=== PATIENT | male | born 1970 | race Caucasian/White ===

== ENCOUNTER 2018-08-29 | Inpatient (IN) | payer MEDICAID ==
[~2018-08-29] VITALS: Ht 167.6 cm; Wt 83.2 kg
[2018-08-29 00:05] VITALS: Ht 167.6 cm; Wt 83.2 kg
--- NOTE | 2018-08-29 00:14 | NUR ---
REC'D A 48/M IN RM 4 WITH C/O RUQ PAIN X 2 DAYS. PT DESCRIBES THE PAIN INTERMITTENT, PRESSURE-LIKE AND RADIATES TO THE BACK. PT DENIES N/V/D/C, FEVER OR DYSURIA. PT AAOX4, CLEAR SPEECH, NIGERIAN SPEAKING, RESP E/U, TRACTION NOTED TO RIGHT LOWER EXTREMITY, IN NO ACUTE DISTRESS, SPOUSE AT BEDSIDE.
--- NOTE | 2018-08-29 00:14 | NUR ---
DR LOZADA AT BEDSIDE FOR MSE.
--- NOTE | 2018-08-29 00:29 | NUR ---
PROVIDED URINAL AT BEDSIDE FOR URINE.
[2018-08-29 00:45] LABS: BASOPHIL % 0 % (0-2); PLATELET COUNT 194 x10^3mcL (130-400); RED CELL DISTRIBUTION WIDTH 13.4 % (11.5-14.5)
--- NOTE | 2018-08-29 00:48 | NUR ---
PT TAKEN TO ULTRASOUND VIA WC.
[2018-08-29 00:55] LABS: CALCIUM 9.3 mg/dL (8.5-10.1); CARBON DIOXIDE 22.7 mmol/L (21-32); CHLORIDE SERUM 96 mmol/L (98-107); CREATININE SERUM 0.7 mg/dL (0.7-1.3); GFR1 > 60 mL/min; GLUCOSE SERUM 211 mg/dL (74-106); POTASSIUM SERUM 4.1 mmol/L (3.5-5.1); SODIUM SERUM 132 mmol/L (136-145)
[2018-08-29 01:00] LABS: ALBUMIN 3.7 g/dL (3.4-5.0); ALKALINE PHOSPHATASE 107 U/L (46-116); ALT/SGPT 68 U/L (16-63); AST/SGOT 30 U/L (15-37); BILIRUBIN TOTAL 3.93 mg/dL (0.20-1.00); LIPASE 39 IU/L (73-393); TOTAL PROTEIN, SERUM 7.8 g/dL (6.4-8.2)
--- NOTE | 2018-08-29 01:09 | NUR ---
PT RETURNED TO RM 4 FROM ULTRASOUND WITHOUT INCIDENT.
--- NOTE | 2018-08-29 01:14 | NUR ---
REPORT GIVEN TO MARLEE WIGGISN TO ASSUME CARE OF THE PT.
--- NOTE | 2018-08-29 01:15 | NUR ---
RECEIVED PT REPORT FROM LEIA WHALEN. I WILL NOW ASSUME PRIMARY CARE OF PT
--- NOTE | 2018-08-29 01:46 | NUR ---
DR LOZADA AT BEDSIDE TO DISCUSS PLAN OF CARE WITH PT
--- NOTE | 2018-08-29 01:50 | NUR ---
THE TWO NOTES MADE ABOVE WERE MADE BY MYSELF.
[2018-08-29] MEDS ORDERED: ZETIA10 M1 (02:38)
[2018-08-29] MEDS ORDERED: NORCO1 TA2 (02:38)
[2018-08-29] MEDS ORDERED: GOOD SENSE ASP325 MG (02:38)
[2018-08-29] MEDS ORDERED: DOXYCYCLINE HY100 MG (02:38)
[2018-08-29] MEDS ORDERED: LIPI20 (02:38)
[2018-08-29] MEDS ORDERED: METFORMIN HCL1000 MG PO (02:39)
--- NOTE | 2018-08-29 02:45 | NUR ---
PT LAYING IN ED GURNEY IN POSITION OF COMFORT. PT HAS MEDICATION RUNNING PER EMAR ORDERS. PT IS A/O X4. PT RESPS ARE E/U. NO C/O PAIN AT THIS TIME
[2018-08-29 02:56] LABS: CHOLESTEROL/HDL RATIO 1.7
--- NOTE | 2018-08-29 03:20 | NUR ---
GAVE PT REPORT TO YARY WHALEN ON MED SURG FLOOR FOR ROOM 208A. YARY WILL ASSUME PRIMARY CARE OF PT
--- NOTE | 2018-08-29 03:31 | NUR ---
PT WHEELED OUT OF ED VIA WHEELCHAIR BY EMT. NO INCIDENCE NOTED
--- NOTE | 2018-08-29 03:40 | NUR ---
RECEIVED PT FROM ER IN [facility]. PT ALERT AND OREINTED X4. PT VERBALIZES MOSTLY IN LITHUANIAN. DENIES [place] OR DIZZINESS. BRETHING EVEN AND UNLABORED ON RA. PT HAS LUNG SOUNDS CLEAR. PT DENIES PAIN AT THIS TIME. PT ALSO DENIES CHEST PAIN OR SOB. PT HAS PALPABLE PULSES TO BLE AND BUE. RLE WITH FIXATORE BUT PT STILL ABLE TO WIGGLE TOES USES WHEECHAIR AND WALKER. PT ABD SOFT WITH ACTIVE BOWEL SOUNDS. DENIES ABD PAIN AT THIS TIME AND VOIDS WITH NO PROBLEM. IV INFUSING WELL TO THE LAC. CALL LIGHT IS WITHIN REACH.
[2018-08-29 03:58] VITALS: BP 114/76
--- NOTE | 2018-08-29 05:21 | NUR ---
DR FABIAN MADE AWARE OF PT'S BLODD SUGAR-163 MG/DL, PER DR RUI LEWIS TO HOLD RISS 3 UNITS THIS MORNING DUE TO PT IS NPO.
--- NOTE | 2018-08-29 05:53 | NUR ---
PT ALSEEP IN BED, APPEARS COMFORTABLE. PT DENIES PAIN AT THIS TIME. NO SIGNS OF DISTRESS OR SOB. BREATHING IS EVEN AND UNLABORED. NPO SINCE ARRIVED TO UNIT. PT IS COOPERATIVE WITH NURSIGN CARE. IV INFUING WELL. WILL CONTINUE TO MONITOR.
[2018-08-29 06:29] VITALS: BP 114/78
[2018-08-29 06:30] LABS: BILIRUBIN DIRECT 0.39 mg/dL (0.0-0.2); BILIRUBIN TOTAL 3.6 mg/dL (0.20-1.00); CALCIUM 9.3 mg/dL (8.5-10.1); CARBON DIOXIDE 28.4 mmol/L (21-32); CHLORIDE SERUM 96 mmol/L (98-107); CREATININE SERUM 0.7 mg/dL (0.7-1.3); GFR1 > 60 mL/min; GLUCOSE SERUM 169 mg/dL (74-106); POTASSIUM SERUM 4.2 mmol/L (3.5-5.1); SODIUM SERUM 130 mmol/L (136-145)
--- NOTE | 2018-08-29 07:26 | NUR ---
PT HAND OFF REPORT HANDED TO NURSE THEO. ALL QUESTIONS AND CONCERNS ANSWERED.
--- NOTE | 2018-08-29 07:30 | NUR ---
PT ENORSE TO ME THIS MORNING. AA/O X4/ LITHUANIAN SPK. BREATHING EVEN AND UNLABORED ON RA, NO ACUTE RESP DISTRESS OR SOB NOTED. MEDSURG. REMAINS NPO. BOWEL SOUNDS ACTIVE IN ALL FOUR QUADS. VOIDS FREELY/ URINAL AT BEDSIDE. RLE FIXITOR INPLACE/ NO NEW DRAINAGE NOTED/ INTACT. IV TO THE LAC INTACT AND PATENT, NO REDNESS OR SWELLING NOTED. CALL LIGHT IN REACH/ BED IN LOW POSITION. WILL CONTINUE PLAN OF CARE.
[2018-08-29 07:37] LABS: PLATELET COUNT 174 x10^3mcL (130-400); RED CELL DISTRIBUTION WIDTH 13.3 % (11.5-14.5)
--- NOTE | 2018-08-29 07:45 | NUR ---
LAB CALLED DR. BEACH AWARE OF WBC 17.4 WILL CONTINUE TO MONITOR.
[2018-08-29 09:22] VITALS: BP 114/69
--- NOTE | 2018-08-29 11:29 | NUR ---
NEW IV TO THE RFA 22G, TOLERATED WELL/ INFUSING AT 100ML/HR NS. REMOVED LAC CATHETER TIP INTACT.
--- NOTE | 2018-08-29 11:30 | NUR ---
ADVICE PT OF COLLECTING URINE AND REMINED PT TO CALL ME ONCE HE HAS URINE IN URINAL, PT AGREED.
[2018-08-29 11:50] LABS: BAND NEUTROPHIL 6 % (0-10); BASOPHIL 0 % (0-2); MONOCYTE 7 % (0-7); SEGMENTED NEUTROPHILS 84 % (37-75)
[2018-08-29 11:51] LABS: PLATELET MORPHOLOGY GIANT PLATELET SEEN; rbc morphology (normal/abnorm) NORMAL (NORMAL)
--- NOTE | 2018-08-29 14:12 | NUR ---
PT C/O OF RUQ PAIN, MEDICATED PER EMAR.
--- NOTE | 2018-08-29 15:14 | NUR ---
Discount pharmacy card and list to low cost medical clinics given to patient by Keily.
--- NOTE | 2018-08-29 15:30 | NUR ---
REMINDED PT ABOUT COLLECTING URINE, DR. YONG JARAMILLO.
--- NOTE | 2018-08-29 16:12 | NUR ---
RECEIVED A CALL FROM AND HE SAYS PT IS SCHEDULED FOR SURGERY TOMORROW 08/30/18 AT 0730. NEW ORDER RECEIVED TO START FULL LIQD DIET AND THEN NPO POST MIDNIGHT FOR SURGERY TOMMOROW. (RESIDENT) MADE AWARE OF ABOVE. THEO WHALEN ASSIGNED TO THIS PT MADE AWARE OF ABOVE.
[2018-08-29 18:02] VITALS: BP 124/79
--- NOTE | 2018-08-29 18:25 | NUR ---
NO ACUTE CHANGES AT THIS TIME. NO ACUTE RESP DISTRESS OR SOB NOTED. DENIES ANY ABD PAIN OR DISCOMFORT THIS TIME, MEDICATED PER EMAR. PT TOLERATED 100 % OF FULL LIQ DIET/ DINNER WITH OUT N/V. IV TO THE RFA INTACT AND PATENT INFUSING AT 100ML/HR. PT WILL BE NPO AT MIDNIGHT FOR SURGERY TOMORROW AM/ PT AWARE. WILL ENDORSE TO INCOMING RN.
--- NOTE | 2018-08-29 19:15 | NUR ---
RECIEVED HAND OFF REPORT FROM NURSE THEO. ALL QUESTIONS AND CONCERNED ANSWERED. PT IS MADE AWARE AND REPORT GIVEN AT BEDSIDE.
--- NOTE | 2018-08-29 20:00 | NUR ---
PT IS A/O X 4. PT LUNG SOUNDS ARE CLEAR. BREATHING IS EVEN AND UNLABORED. NO SIGNS OF RESP DISTRESS OR SOB. PT BOWEL SOUNDS ARE ACTIVE AND LAST BM WAS 6/. PT ABD IS SOFT AND DISTENDED, DENIES PAIN AT THIS TIME. PT VOIDS WITH NO PROBLEM USING BEDSIDE URINAL. PT HAS GENERAL WEAKNESS. PT HAS RLE FIXITOR , DRESSING DRY AND INTACT, NO REDNESS OR DRAINAGE NOTED. PT USES WHEELCHAIR FOR TRANSPORT. PT DENIES ANY PAIN AT THIS TIME. IV IN THE RFA INFUSING WELL. WILL PT HAS ALSO SIGNED BLOOD CONSENT PER MD ORDER. WILL CONTINUE TO MONITOR.
--- NOTE | 2018-08-29 21:03 | NUR ---
PT PRESENTED WITH FEVER OF 102.0 F. WILL MEDICATE PT WITH TYLENOL AND REASSES IN A HOUR.
[2018-08-29 21:04] VITALS: BP 127/82
--- NOTE | 2018-08-29 22:03 | NUR ---
PT RECEIVED TYLENOL FOR FEVER. PT FEVER IS NOW 98.3 F. PT DENIES FEELING HOT OR IN PAIN. PT IS RESTING IN BED WITH ICE PACK.
--- NOTE | 2018-08-30 00:51 | NUR ---
PT C/O OF PAIN AND NAUSEA. GAVE PT ZPFRAN X1 AND MORPHINE X1. VS ARE 118/76, HR 98,O2 93, T 99.1. WILL REASSES.
--- NOTE | 2018-08-30 03:06 | NUR ---
PT C/O OF PAIN TO THE ABD. GAVE TORADOL X1. WILL CONTINUE TO MONITOR.
[2018-08-30 05:42] VITALS: BP 109/71
--- NOTE | 2018-08-30 06:10 | NUR ---
PT HAD INTERVALS OF SLEEP THROUGH OUT THE NIGHT DUE TO ABD PAIN. PT HAS BEEN NPO SINCE MIDNIGHT 0000. PT C/O OF PAIN AND NAUSEA. GAVE PT MORPHINE X1, TORADOL X1, ZOFRAN X1. PT NEEDS WERE MET DENIES PAIN. PT WAS PLACED ON O2 2L NC DUE TO O2 SAT OF 93%. PT TOLERATED WELL WITH TREATMENT. PT PRESENTED WITH FEVER OF 102 F AND RECIEVED TYLENOL 2 TABS. PT NOW PRESENTS WITH NO FEVER OR PAIN. PT WAS PREPED WITH CHB BATH. PT WAS COOPERATIVE WITH NURSING CARE.
--- NOTE | 2018-08-30 07:10 | NUR ---
RECEIVED BEDSIDE REPORT FROM PRIMARY OPERATOR NURSE. PATIENT RESTING COMFORTABLY IN BED. NO APPARENT DISTRESS OR DISCOMFORT NOTED. BREATHING EVEN AND UNLABORED. LUNG SOUNDS CLEAR. PATIENT DENIES CHEST PAIN AT THIS. PULSES PALPABLE WITH NO EDEMA NOTED. FIXATOR NOTED TO RLE. PATIENT ABLE TO WIGGLE TOES. DENIES PAIN AT SITE. BOWEL SOUNDS ACTIVE X4. URINAL NOTED AT BEDSIDE WITH BIN COLORED URINE. IV PATENT AND INTACT AND SALINE LOCKED. ALL QUESTIONS AND CONCERNS ADDRESSED. ALL NEEDS ATTENDED TO. OR EMPLOYEE AT BEDSIDE TO TAKE PATIENT DOWN FOR PROCEDURE VIA GURNEY.
[2018-08-30 07:13] LABS: PLATELET COUNT 162 x10^3mcL (130-400); RED CELL DISTRIBUTION WIDTH 13.6 % (11.5-14.5)
--- NOTE | 2018-08-30 07:16 | NUR ---
PT OFF THE FLOOR TO OR VIA REGULAR BED, NO DISTRESS NOTED.
[2018-08-30 07:42] LABS: ALBUMIN 2.7 g/dL (3.4-5.0); ALKALINE PHOSPHATASE 173 U/L (46-116); ALT/SGPT 114 U/L (16-63); AST/SGOT 74 U/L (15-37); BILIRUBIN TOTAL 7.06 mg/dL (0.20-1.00); CALCIUM 9.2 mg/dL (8.5-10.1); CARBON DIOXIDE 25.6 mmol/L (21-32); CHLORIDE SERUM 99 mmol/L (98-107); CREATININE SERUM 0.9 mg/dL (0.7-1.3); GFR1 > 60 mL/min; GLUCOSE SERUM 158 mg/dL (74-106); MAGNESIUM 1.9 mg/dL (1.8-2.4); POTASSIUM SERUM 4.3 mmol/L (3.5-5.1); SODIUM SERUM 134 mmol/L (136-145); TOTAL PROTEIN, SERUM 6.9 g/dL (6.4-8.2)
--- NOTE | 2018-08-30 11:27 | NUR ---
RECEIVED REPORT FROM OFELIA WHALEN AT THIS TIME. ALL QUESTIONS AND CONCERNS ADDRESSED. WILL MONITOR WHEN PATIENT ARRIVES TO FLOOR.
[2018-08-30 11:31] LABS: BILIRUBIN DIRECT 4.24 mg/dL (0.0-0.2); BILIRUBIN TOTAL 5.9 mg/dL (0.20-1.00)
[2018-08-30 11:32] LABS: ALBUMIN 2.3 g/dL (3.4-5.0); TOTAL PROTEIN, SERUM 5.3 g/dL (6.4-8.2)
--- NOTE | 2018-08-30 11:36 | NUR ---
RECEIVED PATIENT AT THIS TIME. PATIENT RESTING COMFORTABLY IN BED. NO APPARENT DISTRESS OR DISCOMFORT NOTED. 2L NC IN PLACE AND TOLERATING WELL. 2 BANDAIDS NOTED AND ONE BANDAGE NOTED WITH KAYLEY DRAIN. ALL DRESSINGS CLEAN DRY AND INTACT. MILES CATHETER DRAINING TO GRAVITY BIN COLORED URINE. VITAL SIGNS STABLE. ALL QUESTIONS AND CONCERNS ADDRESSED. ALL NEEDS ATTENDED TO. WILL CONTINUE TO MONITOR
[2018-08-30 12:15] LABS: BAND NEUTROPHIL 10 % (0-10); BASOPHIL 0 % (0-2); MONOCYTE 2 % (0-7); PLATELET MORPHOLOGY PLATELETS DECREASED; SEGMENTED NEUTROPHILS 85 % (37-75)
[2018-08-30 12:16] LABS: rbc morphology (normal/abnorm) ABNORMAL (NORMAL)
--- NOTE | 2018-08-30 15:45 | NUR ---
KAYLEY DRAINED 90 ML OF REDISH BROWN DRAINAGE AT THIS TIME. BLEEDING AND BLOOD CLOT NOTED TO INCISION SITE WITH BAO INTACT. REINFORCED WITH STERI STRIPS AND DRESSING. PATIENT DENIES PAIN AT THIS TIME. ALL NEEDS ATTENDED TO. WILL CONTINUE TO CLOSELY MONITOR
[2018-08-30 16:49] VITALS: BP 116/81
--- NOTE | 2018-08-30 18:04 | NUR ---
PAGED DR ALY AT THIS TIME REGARDING PATIENT URINE OUTPUT AND BLEEDING AT INCISION SITE. AWAITING CALL BACK AT THIS TIME.
--- NOTE | 2018-08-30 18:38 | NUR ---
SPOKE TO DR ALY REGARDING PATIENT. REPORTED PATIENT URINE OUTPUT 45ML THIS HOUR. PER DR ALY TELEPHONE ORDER TO ORDER 1L BOLUS AND AFTER BOLUS COMPLETE, TO START IV FLUIDS LR @ 125ML/HR. TELEPHONE ORDER READ BACK, CONFIRMED AND FOLLOWED THROUGH. ALSO REPORTED TO DR ALY PATIENT OPERATIVE SITE BLEEDING. REINFORCED WITH STERI STRIPS AND GAUZE. NO NEW ORDERS AT THIS TIME. ALL NEEDS ATTENDED TO WILL CONTINUE TO MONITOR
--- NOTE | 2018-08-30 19:27 | NUR ---
BOLUS INITIATED AT THIS TIME.
--- NOTE | 2018-08-30 19:35 | NUR ---
RECEIVED REPORT FROM DAY SHIFT RN. PT RESTING IN BED. AA&O X4. NO SOB ON O2 2L VIA NC. C/O SURGICAL INCISION SITE THROBBING PAIN 10/02. WILL MEDICATE. DRESSING TO RUQ, C/D/I. KAYLEY DRAIN, INTACT. BAND AID TO LUQ, C/D/I. DRESSING TO LOWER ABD WITH SMALL AMOUNT OF BLOOD. IV TO RFA, INTACT. FIXATOR TO RLE NOTED. SAFETY MEASURES IN PLACE. BED IN LOWEST POSITION. SIDE RAILS UP X2. INSTRUCTED PT TO USE THE CALL LIGHT FOR ASSISTANCE. CALL LIGHT WITHIN REACH. FAMILY AT BEDSIDE.
--- NOTE | 2018-08-30 19:43 | NUR ---
PATIENT RESTING COMFORTABLY IN BED AT THIS TIME. NO APPARENT DISTRESS OR DISCOMFORT NOTED. IV PATENT AND INTACT. MINIMAL BLOOD NOTED TO ONE DRESSING. LARGE ABD PAD DRESSING CLEAN AND INTACT. KAYLEY DRAIN EMPTIED. MILES CATHETER DRAINING TO GRAVITY. ALL QUESTIONS AND CONCERNS ADDRESSED ALL NEEDS ATTENDED TO. SAFETY PRECAUTIONS MAINTAINED. ENDORSED ALL CARE TO CONSTRUCTION EQUIPMENT TECHNICIAN NURSE YVONNE
--- NOTE | 2018-08-30 20:00 | NUR ---
INFORMED DR FABIAN THAT DRESSING TO LOWER ABD HAS LARGE AMOUNT OF BLOOD. DR FABIAN WILL CONTACT DR ALY.
[2018-08-30 20:32] VITALS: BP 130/85
[2018-08-30 21:16] VITALS: BP 130/85
--- NOTE | 2018-08-30 21:30 | NUR ---
INFORMED DR FABIAN THAT DRESSING TO LOWER ABD IS SOAKED WITH BLOOD. DR FABIAN WAITING FOR DR ALY TO CALL BACK.
--- NOTE | 2018-08-30 21:50 | NUR ---
DR FABIAN AT BEDSIDE. PT AA&O X4. NO SOB ON O2 2L VIA NC. NO DISTRESS NOTED. PER DR FABIAN, CHANGE DRESSING NEEDED THROUGHOUT SHIFT. LABS ORDERED.
--- NOTE | 2018-08-30 22:00 | NUR ---
DRESSING TO LOWER ABD CHANGED. SURGICAL INCISION COVERED WITH GAUZE AND ABD PAD.
[2018-08-30 22:23] LABS: BASOPHIL % 0.2 % (0-2); PLATELET COUNT 188 x10^3mcL (130-400); RED CELL DISTRIBUTION WIDTH 13.5 % (11.5-14.5)
[2018-08-30 22:53] LABS: ALKALINE PHOSPHATASE 147 U/L (46-116); ALT/SGPT 100 U/L (16-63); AMYLASE 61 U/L (25-115); AST/SGOT 67 U/L (15-37); BILIRUBIN TOTAL 2.65 mg/dL (0.20-1.00); CALCIUM 8.4 mg/dL (8.5-10.1); CARBON DIOXIDE 27.7 mmol/L (21-32); CHLORIDE SERUM 100 mmol/L (98-107); CREATININE SERUM 0.7 mg/dL (0.7-1.3); GFR1 > 60 mL/min; GLUCOSE SERUM 171 mg/dL (74-106); LIPASE 167 IU/L (73-393); POTASSIUM SERUM 4.2 mmol/L (3.5-5.1); SODIUM SERUM 133 mmol/L (136-145)
[2018-08-30 22:55] LABS: ALBUMIN 2.3 g/dL (3.4-5.0); TOTAL PROTEIN, SERUM 5.8 g/dL (6.4-8.2)
--- NOTE | 2018-08-31 01:05 | NUR ---
PT RESTING WITH EYES CLOSED. NO SOB. NO FACIAL GRIMACING. NO DISTRESS NOTED. SAFETY MEASURES IN PLACE. CALL LIGHT WITHIN EASY REACH. WILL CONTINUE TO MONITOR.
--- NOTE | 2018-08-31 03:40 | NUR ---
DRESSING TO LOWER ABD CHANGED. SURGICAL INCISION COVERED WITH GAUZE AND ABD PAD.
--- NOTE | 2018-08-31 04:09 | NUR ---
PT C/O THROBBING PAIN TO SURGICAL INCISION SITE 01/02. MEDICATED WITH NORCO.
--- NOTE | 2018-08-31 05:23 | NUR ---
TYLENOL GIVEN FOR FEVER.
[2018-08-31 05:24] VITALS: BP 118/79
--- NOTE | 2018-08-31 05:24 | NUR ---
KAYLEY DRAIN 15 ML OUT SANGUINEOUS FLUID. DR FABIAN MADE AWARE. NO NEW ORDERS AT THIS TIME.
--- NOTE | 2018-08-31 05:57 | NUR ---
MORPHINE GIVEN FOR ABD SURGICAL INCISION SITE THROBBING PAIN 10/10.
--- NOTE | 2018-08-31 06:17 | NUR ---
PT SLEPT AT INTERVALS DURING SHIFT. NO SOB ON O2 2L VIA NC. LOWER ABD DRESSING SOAKED IN BLOOD. GAUZE AND ABD DRESSING CHANGED. DRESSING CHANGE DONE X3 THROUGHOUT SHIFT. DR FABIAN AWARE. SAFETY MEASURES MAINTAINED. ALL NEEDS ATTENDED TO. WILL ENDORSE CONTINUITY OF CARE TO ONCOMING RN.
--- NOTE | 2018-08-31 07:16 | NUR ---
RECEIVED REPORT FROM YVONNE WHALEN . PT RESTING IN BED. NO CURRENT COMPLAINTS OF PAIN. IV TO RFA IS PATENT AND INFUSING LR @ 1258 ML/HR. NO REDNESS OR PAIN. PT ON O2 2L NC. NO C/O SOB AND NO DISTRESS NOTED. MILES IN PLACE DRAINING BIN URINE. SURGICAL SITES X3 TO ABDOMEN. BAND AID COVERING LT ABD SITE IS CDI. DRESSING TO UPPER RIGHT ABD SITE WITH DRAIN IN PLACE IS CDI. DRAINING SEROSANGUINEOUS FLUID. DRESSING TO LOWER MID ABDOMEN IS SOILED BLOOD STAIN MEASURES 6CM X 6CM. PER NOC RN DRESSING CHANGED X3 WITH HER AND X2 WITH RN YESTERDAY. ALL QUESTIONS AND CONCERNS ADDRESSED.
[2018-08-31 08:15] VITALS: BP 127/80
[2018-08-31 09:03] LABS: BASOPHIL % 0.3 % (0-2); PLATELET COUNT 175 x10^3mcL (130-400); RED CELL DISTRIBUTION WIDTH 13.6 % (11.5-14.5)
[2018-08-31 09:41] LABS: ALKALINE PHOSPHATASE 122 U/L (46-116); ALT/SGPT 77 U/L (16-63); AST/SGOT 43 U/L (15-37); BILIRUBIN TOTAL 1.94 mg/dL (0.20-1.00); CALCIUM 8.2 mg/dL (8.5-10.1); CHLORIDE SERUM 100 mmol/L (98-107); CREATININE SERUM 0.6 mg/dL (0.7-1.3); GFR1 > 60 mL/min; GLUCOSE SERUM 136 mg/dL (74-106); POTASSIUM SERUM 3.8 mmol/L (3.5-5.1); SODIUM SERUM 133 mmol/L (136-145)
[2018-08-31 09:42] LABS: ALBUMIN 2.1 g/dL (3.4-5.0); TOTAL PROTEIN, SERUM 5.4 g/dL (6.4-8.2)
--- NOTE | 2018-08-31 13:40 | NUR ---
DR ALY IN TO SEE PATIENT AND ASSESS INCISION SITE. INFORMED THAT DRESSING WAS CHANGED X5 LAST NIGHT DUE TO BEING SOAKED. DR ALY ORDERED TO OBTAIN CAUTERY PEN, STAPLE REMOVER KIT, STAPLER, SUTURE REMOVER KIT, BETADINE, 4X4 X1 PACK, TAPE, AND SIZE 6 1/[address] REMOVED ABD 50% SOILED AND 4X4s 100% SOILED, CLEANED SITE WITH BETADINE, REMOVED BAO AND CAUTERIZED ANY SIGNS OF BLEEDING. HE THEN CLOSED SITE WITH BAO X4 AND COVERED WITH 4X4 X2 FOLDED AND TAPE. INSTRUCTED TO NOTIFY IF BLEEDING CONTINUES AND INFORMED THAT HE WILL CALL TO ASSESS BLEEDING IN A FEW HOURS. IF BLEEDING CONTINUES HE WILL RETURN. NOTED THAT KAYLEY IS DRAINING MINIMAL SEROSANGUINEOUS FLUID AND WAS INFORMED OF 20 ML EMPTIED @ 11:30 TODAY. PT TOLERATED PROCEDURE WELL. WILL ADMINISTER PAIN MEDICATION EMELIA.
--- NOTE | 2018-08-31 15:27 | NUR ---
IN TO SEE PATIENT AND UNCLAMP MILES FRO BLADDER TRAINING. PT REPORTS FEELING THE URGE TO URINATE. MILES EMPTIED PRIOR TO UNCLAMPING. UPON RELEASE 200 ML OF URINE ENTERED THE CHAMBER. MILES RECLAMPED AND I INSTRUCTED THAT THIS WILL OCCUR ONCE MORE BEFORE DC OF THE MILES. PT VERBALIZED UNDERSTANDING AND WILL CALL WHEN HE HAS THE URGE TO URINATE AGAIN.
[2018-08-31 17:00] VITALS: BP 125/81
--- NOTE | 2018-08-31 18:12 | NUR ---
UNCLAMPED MILES AND 300 ML CLEAR YELLOW URINE DRAINED IN MILES BAG. MILES REMOVED AT THIS TIME AND PATIENT SAT AT EDGE OF BED AFTERWARD PER DR ALY REQUEST. WILL ASSIST PT BACK TO BED WHEN HE REQUESTS.
--- NOTE | 2018-08-31 18:20 | NUR ---
DR ALY CALLED FOR PT UPDATE. INFORMED THAT BLEEDING IS NOW MINIMAL AND PATIENT IS CURRENTLY SITTING AT EDGE OF BED. NO CHANGES FROM DR ALY.
--- NOTE | 2018-08-31 19:45 | NUR ---
RECEIVED REPORT FROM DAY SHIFT RN. PT RESTING IN BED. NO SOB ON O2 2L VIA NC. DENIES N/V. PT STATES ABD DISCOMFORT 3/10 TOLERABLE. REFUSED PAIN MEDICATION AT THIS TIME. DRESSING TO ABD X3, C/D/I. KAYLEY DRAIN TO RUQ DRAINING SEROSANGUINEOUS FLUID. EXTERNAL FIXATOR TO RLE NOTED. SAFETY MEASURES IN PLACE. BED IN LOWEST POSITION. SIDE RAILS UP X2. INSTRUCTED PT TO USE THE CALL LIGHT FOR ASSISTANCE. CALL LIGHT WITHIN REACH.
[2018-08-31 21:02] VITALS: BP 124/82
--- NOTE | 2018-08-31 21:09 | NUR ---
NORCO GIVEN FOR INCISIONAL SITE THROBBING PAIN 12/03.
--- NOTE | 2018-09-01 | NUR ---
PT RESTING WITH EYES CLOSED. NO SOB ON O2 2L VIA NC. NO FACIAL GRIMACING. NO DISTRESS NOTED. ABD DRESSING C/D/I. SAFETY MEASURES IN PLACE. CALL LIGHT WITHIN REACH. AT BEDSIDE.
[2018-09-01 06:14] VITALS: BP 131/84
--- NOTE | 2018-09-01 06:34 | NUR ---
PT RESTED AT LONG INTERVALS THROUGHOUT SHIFT. NO SOB ON ROOM AIR. NO DISTRESS NOTED. ABD DRESSING X2 C/D/I. KAYLEY DRAIN WITH SEROSANGUINOUS FLUID. NO BM POST SURGERY. PT STATES PASSING GAS. SAFETY MEASURES MAINTAINED. CALL LIGHT WITHIN REACH. AT BEDSIDE. WILL ENDORSE CONTINUITY OF CARE TO ONCOMING RN.
[2018-09-01 06:41] LABS: BASOPHIL % 0.3 % (0-2); PLATELET COUNT 204 x10^3mcL (130-400); RED CELL DISTRIBUTION WIDTH 13.6 % (11.5-14.5)
[2018-09-01 06:44] LABS: ALKALINE PHOSPHATASE 113 U/L (46-116); ALT/SGPT 67 U/L (16-63); AST/SGOT 30 U/L (15-37); BILIRUBIN TOTAL 1.2 mg/dL (0.20-1.00); CALCIUM 8.4 mg/dL (8.5-10.1); CARBON DIOXIDE 35.4 mmol/L (21-32); CHLORIDE SERUM 99 mmol/L (98-107); CREATININE SERUM 0.6 mg/dL (0.7-1.3); GFR1 > 60 mL/min; GLUCOSE SERUM 142 mg/dL (74-106); PHOSPHOROUS 3.3 mg/dL (2.5-4.9); POTASSIUM SERUM 3.6 mmol/L (3.5-5.1); SODIUM SERUM 136 mmol/L (136-145)
[2018-09-01 06:47] LABS: ALBUMIN 2.3 g/dL (3.4-5.0); TOTAL PROTEIN, SERUM 5.9 g/dL (6.4-8.2)
--- NOTE | 2018-09-01 07:09 | NUR ---
RECEIVED REPORT FROM YVONNE WHALEN. PT SLEEPING COMFORTABLY IN BED. NO INDICATION OF PAIN. NO NEEDS IDENTIFIED. IV TO RFA IS PATENT AND INFUSING LR @ 125 ML/HR. NO REDNESS OR PAIN. PT NOW ON ROOM AIR WITH NO DISTRESS NOTED. AWAITING HIDA SCAN THIS MORNING.
--- NOTE | 2018-09-01 08:49 | NUR ---
PT TAKEN DOWNSTAIRS FOR HIDA SCAN VIA BED.
--- NOTE | 2018-09-01 09:04 | NUR ---
DR ALY IN TO REQUEST PATIENT UPDATE. BLEEDING FROM ABDOMEN HAS STOPPED BUT PATIENT IS STILL COMPLAINING OF PAIN. NOTIFIED THAT MILES IS OUT AND PT IS TOLERATING WELL. DR INSTRUCTED THAT UPON RETURN FROM HIDA SCAN PT IS TO BE PLACE ON REGULAR DIET AND IF TOLERATED TO DC LR @ [address] ALSO INSTRUCTED TO CHANGE DRESSING. CLEAN SITE WITH BETADINE AND APPLY NEW 4X4S WITH TAPE. DR WOULD LIKE TO BE NOTIFIED OF HIDA SCAN RESULTS.
--- NOTE | 2018-09-01 10:20 | NUR ---
PT RETURNED FROM NUCLEAR MEDICINE. PT TOLERATED PROCEDURE WELL. WILL ADMINISTER MEDICATIONS. PT CURRNETLY DECLINES PAIN MEDICATION. PT OK TO EAT FOOD.
--- NOTE | 2018-09-01 11:58 | NUR ---
UPON READING HIDA SCAN RESULTS IT WAS NOTED THAT DR ALY HAS ALREADY BEEN NOTIFIED OF RESULTS BY DR HARTMAN.
--- NOTE | 2018-09-01 13:23 | NUR ---
IN TO ASSESS NEEDS BEFORE GOING TO LUNCH. PT RESTING COMFORTABLY IN BED. ALL NEEDS MET. WILL REASSESS AFTER LUNCH.
--- NOTE | 2018-09-01 14:09 | NUR ---
IN TO ASSESS PATIENT NEEDS. PT REQUESTING AIR CONDITIONER BE TURNED ON. ALL OTHER NEEDS MET.
[2018-09-01 18:02] VITALS: BP 129/90
--- NOTE | 2018-09-01 18:54 | NUR ---
PT CONTINUES TO IMPROVE. NO REQUESTS FOR PAIN MEDICATION TODAY. PT IS TOLERATING REGULAR DIET. DRESSING TO LOWER ABDOMEN INCISION WAS CHANGED TODAY PER DR ALY. DRAINAGE AND BLEEDING HAVE CEASED AND SITE SHOWS NO SIGNS OF INFECTION. KAYLEY TO RT UPPER INCISION DRAINED 20 ML SEROSANGUINEOUS FLUID. SALINE LOCK TO RFA IS PATENT AND INTACT. NO REDNESS OR PAIN. PT ON ROOM AIR. NO C/O SOB AND NO DISTRESS NOTED. WILL ENDORSE ALL CARE TO ONCOMING NURSE.
--- NOTE | 2018-09-01 19:15 | NUR ---
REPORT RECIEVED FROM DAY SHIFT RN. PATIENT WAS SEEN AND IS RESTING COMFORTABLY IN BED. BREATHING EVEN ON ROOM AIR. NO SOB OR RESP DISTRESS NOTED. DENIES CHEST PAIN. C/O 4/10 ABD PAIN, BUT TOLERABLE AT THIS TIME. NO REQUESTING PAIN MEDS. ABD INCISIONS X3, CDI. KAYLEY DRAIN NOTED WITH MINIMAL SEROSANGUINEOUS FLUID OUTPUT NOTED. RIGHT FOOT FIXATOR NOTED, WNL, NO S/S OF INFECTION. IV TO THE RFA, SL. PATENT AND INTACT. NO REDNESS OR SWELLING NOTED. SUCTION AT BEDSIDE. PATIENT REPORTS THAT HE SUCTIONS HIS SPUTUM. COMFORT AND SAFETY MEASURES MAINTAINED. BED IS LOCKED AND IN THE LOWEST POSITION. SIDE RAILS UP X2. FAMILY AT BEDSIDE. CALL LIGHT IS WITHIN REACH. WILL CONTINUE TO MONITOR.
--- NOTE | 2018-09-01 19:56 | NUR ---
PATIENT CALLED REQUESTING OXYGEN. O2 SAT CHECKED AND WAS SATING AT 93-94% ON ROOM AIR. PLACE PATIENT ON 1L NC AND WAS SATING AT 95-96%. PATIENT DID NOT WANT TO BE ON 2LNC. PATIENT STATES BREATHING IS BETTER. NO DISTRESS NOTED. SUCTION AT BEDSIDE. PATIENT SUCTIONED HIMSELF. CALL LIGHT IS WITHIN REACH. WILL CONTINUE TO MONITOR.
[2018-09-01 20:48] VITALS: BP 123/82
--- NOTE | 2018-09-01 21:46 | NUR ---
C/O 5/10 ABD PAIN S/P SURGERY. REQUESTING PRN MORPHINE PRESCRIBED. NO DISTRESS NOTED. WILL CONTINUE TO MONITOR AND REASSESS PAIN LEVEL. CALL LIGHT IS WITHIN REACH.
--- NOTE | 2018-09-02 01:38 | NUR ---
C/O 5/10 ABD PAIN. PRN MORPHINE WAS ADMINSITERED PRESCRIBED. WILL CONTIUE TO MONITOR AND REASSESS PAIN LEVEL. CALL LIGHT IS WITHIN REACH. NO DISTRESS NOTED, BREATHING EVEN.
--- NOTE | 2018-09-02 03:19 | NUR ---
PATIENT IS RESTING COMFORTABLY IN BED WITH EYES CLOSED. NO DISTRESS NOTED. BREATHING EVEN ON ROOM AIR. CALL LIGHT IS WITHIN REACH. WILL CONTINUE TO MONITOR
[2018-09-02 05:08] VITALS: BP 123/77
--- NOTE | 2018-09-02 05:26 | NUR ---
PATIENT SLEPT IN INTERVALS THROUGHOUT THE NIGHT. NO ACUTE CHANGES NOTED. BREATHING EVEN ON ROOM AIR. NC AND SUCTION AT BEDSIDE. IV TO THE RFA SL. PATENT AND INTACT. NO REDNESS OR SWELLING NOTED. C/O PAIN X2 THROUHGOUT THE NIGHT. MEDICATED WITH PRN MORPHINE WITH GOOD RELIEF. DENIES CHEST PAIN. ABD DRESSING CDI. COMFORT AND SAFETY MEASURES MAINTAINED. ALL NEEDS AND CONCERNS ADDRESSED. CALL LIGHT IS WITHIN REACH. WILL CONTINUE TO MONITOR AND ENDORSE CARE DAY SHIFT RN.
--- NOTE | 2018-09-02 06:26 | NUR ---
C/O 5/10 ABD PAIN. PRN MORPHINE ADMINISTERED PRESCRIBED. WILL CONTINUE TO MONITOR AND REASSESS PAIN LEVEL, CALL LIGHT IS WITHIN REACH. NO DISTRESS NOTED.
[2018-09-02 06:33] LABS: BASOPHIL % 0.3 % (0-2); PLATELET COUNT 230 x10^3mcL (130-400); RED CELL DISTRIBUTION WIDTH 13.8 % (11.5-14.5)
[2018-09-02 06:39] LABS: ALKALINE PHOSPHATASE 107 U/L (46-116); ALT/SGPT 63 U/L (16-63); AST/SGOT 32 U/L (15-37); CALCIUM 8.5 mg/dL (8.5-10.1); CARBON DIOXIDE 32.1 mmol/L (21-32); CHLORIDE SERUM 101 mmol/L (98-107); CREATININE SERUM 0.5 mg/dL (0.7-1.3); GFR1 > 60 mL/min; GLUCOSE SERUM 119 mg/dL (74-106); MAGNESIUM 2.1 mg/dL (1.8-2.4); PHOSPHOROUS 3.8 mg/dL (2.5-4.9); POTASSIUM SERUM 3.4 mmol/L (3.5-5.1); SODIUM SERUM 138 mmol/L (136-145)
[2018-09-02 06:57] LABS: ALBUMIN 2.4 g/dL (3.4-5.0); TOTAL PROTEIN, SERUM 6.1 g/dL (6.4-8.2)
[2018-09-02 09:30] VITALS: BP 112/76
--- NOTE | 2018-09-02 09:45 | NUR ---
AT 0705 - RECEIVED PATIENT FROM NIGHT NURSE. AWAKE, ALERT AND ORIENTED. SITTING UP IN BED. IV SALINE LOCKED. DRESSING TO ABDOMEN DRY AND INTACT. KAYLEY DRAIN PATENT WITH MINIMAL SEROSANGUINOUS DRAINAGE. AT 0745 - EATING BREAKFAST. TOLERATING REGULAR DIET. PATIENT ENCOURAGED IN USE OF INSENTIVE SPIROMETER. SCDS TO LLE IN PLACE. PATIENT ENCOURAGED TO MOVE. UNABLE TO ABULATE AT THIS TIME DUE TO EXTERNAL FIXATION OF RLE.
--- NOTE | 2018-09-02 12:26 | NUR ---
IV IN RFA INFILTRATED. CATHETER REMOVED INTACT AND IV RESITED IN LFA. PATIENT CURRENTLY RECEIVING ZOSYN. KAYLEY DRAIN EMPTIED OF 7 ML SEROSANGUINOUS FLUID.
--- NOTE | 2018-09-02 13:19 | NUR ---
AT 1245 - SEEN BY DR ALY. DR ALY WAS REMOVING THE KAYLEY DRAIN BUT THE DRAIN TUBE DID NOT COME OUT INTACT. DR ALY TOLD PATIENT THAT HE NEEDS TO TAKE HIM BACK TO SURGERY TO REMOVE THE RETAINED PORTION OF THE DRAIN TUBE. PATIENT AGREED. AT 1315 - USING TELEPHONE ROLL EDGE MACHINE OPERATOR, ID # [id number] EXPLAINED TO PATIENT PLAN FOR SURGERY AND LAPAROSCOPIC REMOVAL OF REMAINING PART OF DRAIN TUBE. PATIENT SIGNED CONSENT FORM. SKIN PREP WITH CHLORHEXEDINE WIPES DONE AND PATIENT PREPARED FOR SURGERY. AWARE OF NEED TO BE NPO.
--- NOTE | 2018-09-02 14:42 | NUR ---
Initial Nutrition Assessment: (201-A) Jose L CravenDave 48M Dx: Cholecystitis PMHx: DM, HTN PSHx: None, RLE surgery Labs: BG 119 H, Cr 0.5 L, Alb 2.4 L, A1c 6.6 H, RBC 4.03, Hgb 11.6 L, HCT 34 L Meds: Colace, D10%, Humulin, Lipitor, Zetia, Zofran, Zosyn Diet: CCHO PO Intake: ~50% Ht: 66in Wt: 183# BMI: 29.6 Bed scale: 183.5# IBW: 136# %IBW: 129% UBW: 180# Age: 48 Food Allergies: NKFA Skin: Dressing to abd surgical incision, dry intact; KAYLEY drain w/ sml amount of serrosanguinous [place]: 18 Edema: trace RLE, SCD to LLE GI: Last BM: no BM since surgery (08/27) RD note (09/02): Visited pt bedside, shown visible pain in abd area. Pt communicates adequately in Croatian, but some in Czech. Pt w/ low PO intake r/t abd pain when eating. Ate a little bit of breakfast. States he eats small, frequent meals throughout the day. BG 119, trending downwards, states checks BG 2 times/day. Per RN note, pt planned to go back to surgery to remove retained portion of dratin tube, made aware of need to be NPO. Recomend to continue current plan of care after surgery. Problem with: N/V/D/C: None Problems with: Chewing: None Swallowing: None Current appetite: low Recent wt change: None %wt change: None Vitamin/Supplement use: None Special diet at home: DM diet Physical activity: N/A Nutrition education given (specify specific nutrition education and handout given): None given at this time. Food-drug interactions? Education given? None given at this time. Estimated Nutritional Needs Based on body weight 83 kg Energy: 7007-9790 kcal/day (25-30 kcal/kg) Protein: 83-100 g/day (1.0-1.5 g/kg) Fluid: 3587-6430 mL/day (1 mL/kcal) Nutrition Diagnosis: Inadequate oral intake r/t cholecystitis and s/p surgery AEB PO intake ~50% and pt stating abd pain when eats. Intervention 1. When pt started back on PO diet and advanced from clear liquids, continue on CCHO diet. Monitor/Evaluate Goal: PO intake at least 75% of estimated needs Monitor: PO intake, Labs, GI function F/U in 3-5 days as risk MR 09/05-09/07
--- NOTE | 2018-09-02 14:44 | NUR ---
Recommendation: 1. When pt started back on PO diet and advanced from clear liquids, continue on CCHO diet.
--- NOTE | 2018-09-02 15:21 | NUR ---
AT 1440 - PATIENT TAKEN TO OR.
[2018-09-02 17:30] VITALS: BP 114/72
--- NOTE | 2018-09-02 18:02 | NUR ---
AT 1735 - PATIENT BACK IN ROOM FOLLOWING DIAGNOSTIC LAPAROSCOPY AND REMOVAL OF FOREIGN BODY UNDER GENERAL ANAESTHESIA. PATIENT IS AWAKE, ALERT AND ORIENTED. 2 NEW INCISIONS ON LEFT AMBDOMEN WITH BAND-AIDS ARE DRY. ALSO 4x4 GAUZE DRESSING TO R SIDE AT ORIGINAL SURGERY INCISION. LOWER ABDOMINAL INCISION WITH BAO IS OPEN TO AIR. IV SALINE LOCKED. PATIENT SETTLED IN ROOM. CHANGED GOWN AND MADE COMFORTABLE. IS AT BEDSIDE. AT 1800 - IV ZOSYN IN PROGRESS. PATIENT NOW ON CLEAR LIQUID DIET BUT DOES NOT WANT TO HAVE ANYTHING PO AT THIS TIME.
--- NOTE | 2018-09-02 19:10 | NUR ---
RECEIVED PT LAYING IN BED, NO ACUTE DISTRESS OBSERVED, DENIES PAIN OR DISCOMFORT AT THIS TIME. AA/OX4. MED-SURG, NO TELE, NO CP. WEAK R PEDAL PULSE WITH NON PITTING EDEMA. RLE WITH METAL EXTERNAL FIAXTOR, W/C AT BASELINE AND WITHIN REACH. BREATHING ON RA, EVEN AND UNLABORED, DENIES SOB OR DYSPNEA, LUNGS CTA, O2 SAT 94%, I.S. AT BEDSIDE, PT ENCOURAGED TO USE. ABD ROUND AND SOFT WITH HYPOACTIVE BOWEL SOUNDS, DENIES N/V/D. S/P LAPROSCOPY EARLIER TODAY WITH FOREIGN BODY REMOVAL, PT ADMITS TO POST OP PASSING GAS AND VOIDING, NO BM. 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 L UPPER AND LOWER ABD INCISION WITH BAND AIDS X2, CDI. IV TO LFA IN PLACE, DRY, PATENT, INTACT, S/L AT THIS TIME, NO PAIN, REDNESS OR SWELLING WHEN FLUSHED WITH NS. COMFORT AND SAFETY MEASURES IN PLACE. ALL NEEDS ASSESSED AND ATTENDED TO. CALL LIGHT WITHIN REACH. WILL CONTINUE TO MONITOR
--- NOTE | 2018-09-02 19:30 | NUR ---
AT 1910 - RESTING QUIETLY. NO C/O PAIN. VSS AND WNL. AFEBRILE. CARE ENDORSED TO NIGHT NURSE.
[2018-09-02 20:35] VITALS: BP 118/73
--- NOTE | 2018-09-03 00:43 | NUR ---
PT'S K LEVEL IN AM 3.4, DR. FABIAN MADE AWARE, NO NEW ORDERS
[2018-09-03 05:36] VITALS: BP 103/70
--- NOTE | 2018-09-03 05:48 | NUR ---
NO SIGNIFICANT CHANGES TO REPORT, PT COMPLIED WITH NURSING CARE THROUGHOUT THE SHIFT WITH NO ACUTE EVENTS OVERNIGHT. NO ACUTE DISTRESS OBSERVED AT THIS TIME, PT LAYING IN BED, BREATHING EVEN AND UNLABORED, AROUSABLE TO VERBAL STIMULI. COMFORT AND SAFETY MEASURES MAINTAINED. ALL NEEDS ASSESSED AND ATTENDED TO. CALL LIGHT WITHIN REACH. WILL CONTINUE TO MONITOR AND ENDORSE CARE TO DAY SHIFT NURSE
[2018-09-03 06:25] LABS: BASOPHIL % 0.3 % (0-2); PLATELET COUNT 304 x10^3mcL (130-400); RED CELL DISTRIBUTION WIDTH 13.8 % (11.5-14.5)
[2018-09-03 06:37] LABS: ALKALINE PHOSPHATASE 104 U/L (46-116); ALT/SGPT 47 U/L (16-63); AST/SGOT 29 U/L (15-37); BILIRUBIN TOTAL 1.01 mg/dL (0.20-1.00); CARBON DIOXIDE 27.8 mmol/L (21-32); CHLORIDE SERUM 102 mmol/L (98-107); CREATININE SERUM 0.7 mg/dL (0.7-1.3); GFR1 > 60 mL/min; GLUCOSE SERUM 109 mg/dL (74-106); POTASSIUM SERUM 3.7 mmol/L (3.5-5.1); SODIUM SERUM 139 mmol/L (136-145); TOTAL PROTEIN, SERUM 6.3 g/dL (6.4-8.2)
[2018-09-03 06:48] LABS: ALBUMIN 2.4 g/dL (3.4-5.0)
[2018-09-03 07:30] VITALS: BP 114/73
--- NOTE | 2018-09-03 07:30 | NUR ---
RECEIVED PT IN BED, AAO X 4, SPAMISH SPEAKING, VERBAL, DENIES MCPHERSON/PAIN, CALM, FOLLOW COMMAND, CLEAR SPEACH, LUNG CTA, BREATING EQUALLY AND NONLABORED, NO REPORT OF RESP DISTRESS/ SOB, DENIES CHEST PAIN/PRESSURE, BS ACTIVE TO ALL QUADRANT, POST-OP, ABLE TO PASS GAS, NO BM AT THIS TIME, CONTINENT, ABLE TO URINATE WITH NO PROBLEM, SKIN W/D/C, TRASVERSE INCISION X2 TO UPPER ABD AND UNDER UMBILICUS AREA, TRASPARENT DRESSING TO UPPER ABD, BANDAID TO LUQ AND LLQ, NO S/S OF INFECTION, NO DAINAGE NOTED AT THIS TIME, RLE EXTERNAL FIXATOR, ABLE TO MAKE NEEDS KNOWN, BED AT LOW POSITION, IZABELLA LIGHT WITHIN REACH, CONTINUE TO MONTIOR
--- NOTE | 2018-09-03 08:23 | NUR ---
AM MEDICATION GIVEN PER ORDER, SEE EMAR, TOLERATED WELL, NO ASE NOTED AT THIS TIME, DENIES PAIN/ DISCOMFORT, RESTING IN BED, BED AT LOW POSITION, IZABELLA LIGHT IN TOUCH, CONTINUE TO MONITOR
[2018-09-03] MEDS ORDERED: AUG500 PO (12:11)
--- NOTE | 2018-09-03 12:20 | NUR ---
PT IN BED, NO RESP DISTRESS OR SOB NOTED, REPORTED NO PAIN/PRESSURE, IV FLUID INFUSING WELL, IV SITE CLEAN AND INTACT, NO SWEELING/ INFLAMMATION NOTED, BED AT LOW POSITION, CALL LIGHT WITHIN REACH, CONTINUE TO MONITOR
[2018-09-03 12:40] VITALS: BP 114/73
--- NOTE | 2018-09-03 14:39 | NUR ---
PT DISCHARGED TO HOME IN NO ACUTE DISTRESS. AWAKE, ALERT, AND ORIENTED. VSS. TRANSPORTED VIA PT'S OWN WHEELCHAIR. JENNIFER ADLER PRESENT FOR TRANSLATION. RX GIVEN. DISCHARGE EDUCATION PROVIDED, PT VERBALIZED UNDERSTANDING. INSTRUCTED PT TO FOLLOW UP WITH PCP AND DR. ALY. IV DC'D WITH CATHETER INTACT. PT REFUSED TO HAVE BAND AIDS REPLACED ON ABDOMINAL INCISION SITES. RLE EXTERNAL FIXATION IN PLACE. BELONGINGS WITH PT. JENNIFER ADLER ACCOMPANIED PT TO LOBBY.
== END 2018-09-03 14:41 | disposition home or self-care (01) | DRG 263 ==
LOC: ED → MU 02:18
PROVIDERS: Emergency Medicine; Surgery; ADMIT Family Medicine
PROC: BF10YZZ Fluoroscopy of Bile Ducts using Other Contrast (ICD-10-PCS; 2018-08-30)
PROC: 0DNW0ZZ Release Peritoneum, Open Approach (ICD-10-PCS; 2018-08-30)
PROC: 0FT40ZZ Resection of Gallbladder, Open Approach (ICD-10-PCS; principal; 2018-08-30 07:30)
PROC: 0WCG0ZZ Extirpation of Matter from Peritoneal Cavity, Open Approach (ICD-10-PCS; 2018-09-02)
DX: K80.00 Calculus of gallbladder with acute cholecystitis without obstruction (principal); E11.65 Type 2 diabetes mellitus with hyperglycemia; T81.598A Other complications of foreign body accidentally left in body following other procedure, initial encounter; N39.0 Urinary tract infection, site not specified; E87.1 Hypo-osmolality and hyponatremia; K66.0 Peritoneal adhesions (postprocedural) (postinfection); E66.9 Obesity, unspecified; E80.6 Other disorders of bilirubin metabolism; I10 Essential (primary) hypertension; Z68.30 Body mass index [BMI] 30.0-30.9, adult; Y80.1 Therapeutic (nonsurgical) and rehabilitative physical medicine devices associated with adverse incidents; Y92.230 Patient room in hospital as the place of occurrence of the external cause
CPT/HCPCS: 76001; 78226; 82962; 94150; A9537; C1758; G0378; J0330; J0696; J1170; J1815; J1885; J2270; J2405; J2543; J2704; J2710; J3010; J3490; J7030; J7120; Q0092; Q9967